=== PATIENT | female | born 1995 | race Caucasian/White ===

== ENCOUNTER 2019-01-16 03:27 | Emergency (ER) | payer MEDICAID, OTHER ==
[~2019-01-16] VITALS: Ht 162.6 cm; Wt 90.9 kg
[~2019-01-16 03:27] MED LIST: AFRIN NS; COROTSUS OT; KEN0.1O TP; MOT200T PO; NO HOME MEDS; PSEU-225 PO; [UNRECOGNIZED DRUG - OTHER]
[2019-01-16] MEDS ORDERED: normal saline 1000ml 1,000 ML IV ONE (04:15)
[2019-01-16 05:18] VITALS: BP 136/93
== END 2019-01-16 05:14 ==
LOC: ER 03:27
DX: Z04.3 Encounter for examination and observation following other accident (principal); Z87.891 Personal history of nicotine dependence; Z88.8 Allergy status to other drugs, medicaments and biological substances; Z79.899 Other long term (current) drug therapy; V87.7XXA Person injured in collision between other specified motor vehicles (traffic), initial encounter; Y93.89 Activity, other specified; Y92.410 Unspecified street and highway as the place of occurrence of the external cause; Y99.8 Other external cause status
CPT/HCPCS: 93005; 99283; J7030